=== PATIENT | male | born 1995 | race Hispanic/Latino ===

== ENCOUNTER 2021-09-19 14:44 | Emergency (ER) | payer SELFPAY ==
[2021-09-19] MEDS ORDERED: Morphine 4 MG/ML VIAL ONE ×3 (15:22→20:44)
[2021-09-19] MEDS ORDERED: Ondansetron PF 4 MG/2 ML Vial ONE ×2 (15:23→16:58)
[2021-09-19 15:35] LABS: #Lymphocytes 1.1 thou/uL (1.20-3.40); #Monocytes 0.7 thou/uL (0.11-0.59); #Neutrophils 9.9 thou/uL (1.40-6.50); %Basophils 0.1 % (0.0-1.0); %Lymphocytes 9.7 % (21.0-51.0); %Monocytes 6.1 % (0.0-10.0); %Neutrophils 84.1 % (42.0-75.0); Hemoglobin 16.2 g/dL (14.0-18.0); Mean Corpuscular HGB CONC 33.9 g/dL (32.0-36.0); Mean Corpuscular Hemoglobin 32.9 pg (27.0-31.0); Mean Corpuscular Volume 96.9 fL (78.0-98.0); Mean Platelet Volume 7.2 fL (7.4-10.4); Platelet Count 345 thou/uL (130-400); RBC Distribution Width 11.2 % (11.5-14.5); Red Blood Cell (RBC) Count 4.93 mill/uL (4.70-6.10); White Blood Cell (WBC) Count 11.7 thou/uL (4.8-10.8)
[2021-09-19 15:56] LABS: Bacteria/HPF None Seen HPF (None Seen); Bilirubin 1+ (Negative); Blood, Urine 3+ (Negative); Glucose, Urine (Dipstick) 70 mg/dL (Negative); Ketone, Urine 20 mg/dL (Negative); Leukocyte Negative Leu/uL (Negative); Nitrite Negative (Negative); Protein, Urine (Dipstick) 600 mg/dL (Neg-Trace); RBC/HPF Greater than 50 HPF (0-3); Specific Gravity, Urine 1.041 (1.002-1.036); Urobilinogen Normal mg/dL (Less than 2); pH, Urine 6.5 (5.0-9.0)
[2021-09-19 16:00] LABS: ALT (SGPT) 20 U/L (8-55); AST (SGOT) 20 U/L (5-34); Albumin 4.5 g/dL (3.5-5.0); Alkaline Phosphatase 118 U/L (40-110); Anion Gap 18 mmol/L (10-20); BUN (Urea Nitrogen) 15 mg/dL (8.9-20.6); Bilirubin, Total 0.9 mg/dL (0.2-1.2); Calc. Creatinine Clearance 0 mL/min (70-130); Carbon Dioxide 23 mmol/L (22-29); Chloride 98 mmol/L (98-107); Estimated GFR 64; Globulin 4.5 g/dL (2.4-3.5); Glucose 147 mg/dL (70-105); Lipase 7 U/L (8-78); Potassium 4.4 mmol/L (3.5-5.1); Sodium 135 mmol/L (136-145)
[2021-09-19 16:00] LABS: Clarity Cloudy (Clear)
[2021-09-19] MEDS ORDERED: Iopamidol-370 76% 500 ML 1 ML ONE (16:05)
== END 2021-09-19 21:03 | disposition short-term general hospital (02) ==
LOC: ERS 14:44
DX: R19.00 Intra-abdominal and pelvic swelling, mass and lump, unspecified site (principal); R31.9 Hematuria, unspecified
CPT/HCPCS: 74177; 76870; 80053; 81003; 81015; 83605; 83690; 85025; 87040; 93976; 96374; 96375; 96376; J2270; J2405; Q9967

== ENCOUNTER 2022-07-05 12:46 | Emergency (ER) | payer SELFPAY ==
[2022-07-05] MEDS ORDERED: Ondansetron PF 4 MG/2 ML Vial ONE (12:59)
[2022-07-05] MEDS ORDERED: Promethazine HCl 12.5 MG in Sodium Chloride 0.9% 50 ML IVPB SCH (13:15)
[2022-07-05 13:27] LABS: #Monocytes 0.3 thou/uL (0.11-0.59); #Neutrophils 3.1 thou/uL (1.40-6.50); %Basophils 0.5 % (0.0-1.0); %Eosinophils 0.2 % (0.0-10.0); %Lymphocytes 23.4 % (21.0-51.0); %Neutrophils 68.7 % (42.0-75.0); Mean Corpuscular HGB CONC 34.1 g/dL (32.0-36.0); Mean Corpuscular Hemoglobin 32.1 pg (27.0-31.0); Mean Corpuscular Volume 94.3 fl (78.0-98.0); Mean Platelet Volume 9.2 fL (7.4-10.4); Platelet Count 276 10x3/uL (130-400); RBC Distribution Width 13.1 % (11.5-14.5); Red Blood Cell (RBC) Count 4.36 mill/uL (4.70-6.10); White Blood Cell (WBC) Count 4.4 10x3/uL (4.8-10.8)
[2022-07-05 13:51] LABS: ALT (SGPT) 18 U/L (8-55); AST (SGOT) 17 U/L (5-34); Albumin 4.7 g/dL (3.5-5.0); Alkaline Phosphatase 100 U/L (40-110); Anion Gap 19 mmol/L (10-20); BUN (Urea Nitrogen) 15 mg/dL (8.9-20.6); Bilirubin, Total 2.5 mg/dL (0.2-1.2); Calc. Creatinine Clearance 0 mL/min (70-130); Calcium 9.5 mg/dL (7.8-10.44); Carbon Dioxide 15 mmol/L (22-29); Chloride 105 mmol/L (98-107); Estimated GFR 112; Globulin 2.8 g/dL (2.4-3.5); Glucose 100 mg/dL (70-105); Lipase 47 U/L (8-78); Potassium 3.5 mmol/L (3.5-5.1); Protein, Total 7.5 g/dL (6.0-8.3); Sodium 135 mmol/L (136-145)
== END 2022-07-05 14:37 | disposition home or self-care (01) ==
LOC: ERS 12:46
DX: R11.2 Nausea with vomiting, unspecified (principal); R19.7 Diarrhea, unspecified; F11.23 Opioid dependence with withdrawal; D72.819 Decreased white blood cell count, unspecified
CPT/HCPCS: 36415; 80053; 83690; 85025; 96365; 96375; J2405; J2550

== ENCOUNTER 2022-08-08 17:31 | Emergency (ER) | payer SELFPAY ==
[2022-08-08] MEDS ORDERED: Morphine 4 MG/ML VIAL ONE ×2 (18:00→20:22)
[2022-08-08] MEDS ORDERED: Ondansetron PF 4 MG/2 ML Vial ONE (18:00)
[2022-08-08 18:24] LABS: #Monocytes 0.4 thou/uL (0.11-0.59); #Neutrophils 7.1 thou/uL (1.40-6.50); %Basophils 0.2 % (0.0-1.0); %Eosinophils 0.3 % (0.0-10.0); %Lymphocytes 13.7 % (21.0-51.0); %Monocytes 4.9 % (0.0-10.0); %Neutrophils 80.7 % (42.0-75.0); Hemoglobin 15.6 g/dL (14.0-18.0); Mean Corpuscular HGB CONC 35.1 g/dL (32.0-36.0); Mean Corpuscular Hemoglobin 33.7 pg (27.0-31.0); Mean Corpuscular Volume 96.1 fl (78.0-98.0); Platelet Count 244 10x3/uL (130-400); RBC Distribution Width 12.6 % (11.5-14.5); Red Blood Cell (RBC) Count 4.63 mill/uL (4.70-6.10); White Blood Cell (WBC) Count 8.8 10x3/uL (4.8-10.8)
[2022-08-08 18:29] LABS: Bacteria/HPF None Seen HPF (None Seen); Bilirubin Negative (Negative); Blood, Urine Negative (Negative); CAUTI Indications for Culture Pelvic or flank pain; Clarity Clear (Clear); Glucose, Urine (Dipstick) Normal (Negative); Ketone, Urine 20 mg/dL (Negative); Leukocyte Negative Leu/uL (Negative); Nitrite Negative (Negative); Protein, Urine (Dipstick) 30 mg/dL (Neg-Trace); RBC/HPF 0-3 HPF (0-3); Specific Gravity, Urine 1.022 (1.002-1.036); Squamous Epithelial None Seen HPF (0-3); Urobilinogen Normal mg/dL (Less than 2); WBC/HPF 0-3 HPF (0-3); pH, Urine 7.5 (5.0-9.0)
[2022-08-08 18:31] LABS: Urine Culture Reflex No No
[2022-08-08 18:37] LABS: Amphetamine Not Detected (NotDetected); Barbiturates Screen Not Detected (NotDetected); Benzodiazepine Screen Not Detected (NotDetected); Cocaine Metabolite Screen Not Detected (NotDetected); Methadone Not Detected (NotDetected); Methamphetamine Not Detected (NotDetected); Opiate Screen Detected (NotDetected); Oxycodone Screen Not Detected (NotDetected); Phencyclidine (PCP) Not Detected (NotDetected); THC/Cannabinoid Screen Detected (NotDetected); Tricyclic Screen Not Detected (NotDetected)
[2022-08-08 18:48] LABS: INR-International Normal Ratio 1.1; Prothrombin Time 14.2 sec (12.0-14.7)
[2022-08-08 18:52] LABS: ALT (SGPT) 25 U/L (8-55); AST (SGOT) 24 U/L (5-34); Albumin 5.1 g/dL (3.5-5.0); Alkaline Phosphatase 117 U/L (40-110); Anion Gap 19 mmol/L (10-20); BUN (Urea Nitrogen) 14 mg/dL (8.9-20.6); Bilirubin, Total 1.3 mg/dL (0.2-1.2); Calc. Creatinine Clearance 0 mL/min (70-130); Calcium 10.4 mg/dL (7.8-10.44); Carbon Dioxide 14 mmol/L (22-29); Chloride 109 mmol/L (98-107); Estimated GFR 122; Glucose 119 mg/dL (70-105); Lipase 17 U/L (8-78); Magnesium 1.9 mg/dL (1.6-2.6); Potassium 3.7 mmol/L (3.5-5.1); Protein, Total 8.1 g/dL (6.0-8.3); Sodium 138 mmol/L (136-145)
[2022-08-08] MEDS ORDERED: Haloperidol Lactate 5 MG/ML VIAL ONE ×2 (19:31→21:30)
[2022-08-08 21:29] LABS: Lactic Acid 1.2 mmol/L (0.5-2.2)
== END 2022-08-08 22:32 | disposition home or self-care (01) ==
LOC: ERS 17:31
DX: R11.2 Nausea with vomiting, unspecified (principal); E86.0 Dehydration
CPT/HCPCS: 36415; 71045; 74177; 80053; 80306; 81001; 83605; 83690; 83735; 84484; 85025; 85610; 85730; 93005; 96361; 96374; 96375; 96376; J1630; J2270; J2405

== ENCOUNTER 2022-10-03 23:44 | Inpatient (IN) | payer OTHER, SELFPAY ==
[~2022-10-03 23:44] MED LIST: Iopamidol-370 76% 500 ML MDV (1 ML CHARGE) ONE
[2022-10-04 00:29] LABS: #Monocytes 0.2 thou/uL (0.11-0.59); #Neutrophils 7.1 thou/uL (1.40-6.50); %Basophils 0.1 % (0.0-1.0); %Lymphocytes 7.8 % (21.0-51.0); %Monocytes 2.1 % (0.0-10.0); %Neutrophils 89.9 % (42.0-75.0); Hematocrit 40.3 % (42.0-52.0); Hemoglobin 14.9 g/dL (14.0-18.0); Mean Corpuscular Hemoglobin 33.3 pg (27.0-31.0); Mean Corpuscular Volume 90.2 fl (78.0-98.0); Mean Platelet Volume 9.7 fL (7.4-10.4); Platelet Count 236 10x3/uL (130-400); RBC Distribution Width 12.2 % (11.5-14.5); Red Blood Cell (RBC) Count 4.47 mill/uL (4.70-6.10); White Blood Cell (WBC) Count 7.9 10x3/uL (4.8-10.8)
[2022-10-04] MEDS ORDERED: Ondansetron PF 4 MG/2 ML Vial ONE (00:46)
[2022-10-04] MEDS ORDERED: Morphine 4 MG/ML VIAL ONE ×2 (00:46→02:29)
[2022-10-04 00:58] LABS: ALT (SGPT) 24 U/L (8-55); AST (SGOT) 20 U/L (5-34); Albumin 5.1 g/dL (3.5-5.0); Alkaline Phosphatase 114 U/L (40-110); Anion Gap 18 mmol/L (10-20); BUN (Urea Nitrogen) 17 mg/dL (8.9-20.6); Calc. Creatinine Clearance 0 mL/min (70-130); Calcium 10.4 mg/dL (7.8-10.44); Carbon Dioxide 16 mmol/L (22-29); Chloride 106 mmol/L (98-107); Estimated GFR 123; Globulin 3.2 g/dL (2.4-3.5); Glucose 111 mg/dL (70-105); Lipase 8 U/L (8-78); Magnesium 1.9 mg/dL (1.6-2.6); Potassium 3.2 mmol/L (3.5-5.1); Protein, Total 8.3 g/dL (6.0-8.3); Sodium 137 mmol/L (136-145)
[2022-10-04] MEDS ORDERED: Potassium Chloride 20 MEQ TAB ONE (02:29)
[2022-10-04] MEDS ORDERED: Promethazine HCl 25 MG/ML VIAL ONE (03:45)
[2022-10-04 06:32] VITALS: BMI 23.9
[2022-10-04] MEDS ORDERED: Promethazine HCl 12.5 MG in Sodium Chloride 0.9% 50 ML IVPB PRN (08:13)
[2022-10-04] MEDS: Morphine 4 MG/ML VIAL SLOW IVP PRN ×4 (09:09→21:07)
[2022-10-04] MEDS: Ondansetron PF 4 MG/2 ML Vial IVP PRN (09:14)
[2022-10-04] MEDS ORDERED: Acetaminophen 325 MG TAB PO PRN (10:15)
[2022-10-04] MEDS ORDERED: Pantoprazole 40 MG VIAL IVP SCH ×2 (10:19→10:45)
[2022-10-04] MEDS ORDERED: Electrolyte Replacement Protocol 1 EACH FS SCH (10:30)
[2022-10-04] MEDS: Potassium Chloride 20 MEQ in Lactated Ringer's 1,000 ML IV SCH ×2 (12:35→23:31)
[2022-10-04] MEDS ORDERED: Magnesium 2 GM/50 ML(in water) 2 GM in Premix Bag 1 BAG IVPB SCH (12:45)
[2022-10-04] MEDS: Metoclopramide HCl 10 MG/2 ML VIAL IVP PRN ×2 (13:55→21:23)
[2022-10-04] MEDS: Pantoprazole 40 MG VIAL IVP SCH (21:08)
[2022-10-05] MEDS: Morphine 4 MG/ML VIAL SLOW IVP PRN ×5 (01:12→20:33)
[2022-10-05] MEDS: Ondansetron PF 4 MG/2 ML Vial IVP PRN ×3 (02:47→20:33)
[2022-10-05 05:54] LABS: #Monocytes 0.3 thou/uL (0.11-0.59); #Neutrophils 1.9 thou/uL (1.40-6.50); %Basophils 0.5 % (0.0-1.0); %Eosinophils 0.9 % (0.0-10.0); %Lymphocytes 47.3 % (21.0-51.0); %Monocytes 6.8 % (0.0-10.0); %Neutrophils 44.5 % (42.0-75.0); Hematocrit 35.9 % (42.0-52.0); Hemoglobin 12.4 g/dL (14.0-18.0); Mean Corpuscular HGB CONC 34.5 g/dL (32.0-36.0); Mean Corpuscular Volume 95.5 fl (78.0-98.0); Mean Platelet Volume 9.7 fL (7.4-10.4); Platelet Count 169 10x3/uL (130-400); RBC Distribution Width 12.4 % (11.5-14.5); Red Blood Cell (RBC) Count 3.76 mill/uL (4.70-6.10); White Blood Cell (WBC) Count 4.3 10x3/uL (4.8-10.8)
[2022-10-05 06:29] LABS: Anion Gap 12 mmol/L (10-20); BUN (Urea Nitrogen) 10 mg/dL (8.9-20.6); Calc. Creatinine Clearance 141 mL/min (70-130); Calcium 9.2 mg/dL (7.8-10.44); Carbon Dioxide 22 mmol/L (22-29); Chloride 107 mmol/L (98-107); Estimated GFR 122; Glucose 75 mg/dL (70-105); Potassium 3.6 mmol/L (3.5-5.1); Sodium 137 mmol/L (136-145)
[2022-10-05] MEDS: Metoclopramide HCl 10 MG/2 ML VIAL IVP PRN ×2 (06:49→14:35)
[2022-10-05] MEDS ORDERED: Fentanyl 100 MCG/2 ML VIAL SLOW IVP PRN (07:40)
[2022-10-05] MEDS ORDERED: fentaNYL 50 mcg/mL 1 mL Vial SLOW IVP PRN (07:42)
[2022-10-05] MEDS: Pantoprazole 40 MG VIAL IVP SCH ×2 (08:43→20:32)
[2022-10-05] MEDS: Potassium Chloride 20 MEQ in Lactated Ringer's 1,000 ML IV SCH ×2 (09:16→16:28)
[2022-10-05] MEDS ORDERED: Promethazine HCl 25 MG/ML VIAL IM PRN (09:19)
[2022-10-05] MEDS ORDERED: Ondansetron HCl/PF 4 MG/2 ML Vial IVP PRN (09:19)
[2022-10-05] MEDS ORDERED: Lidocaine 1% PF 5 ML VIAL ONE (09:22)
[2022-10-05] MEDS ORDERED: PROPOFOL 200 MG/20 ML VIAL ONE (09:22)
[2022-10-05] MEDS: Scopolamine 1.5 mg/72 hour Patch TD SCH (12:43)
[2022-10-05] MEDS ORDERED: Fentanyl 100 MCG/2 ML VIAL SLOW IVP SCH (16:07)
[2022-10-05] MEDS: Metoclopramide HCl 10 MG/2 ML VIAL IVP SCH ×2 (16:29→20:32)
[2022-10-06] MEDS ORDERED: fentaNYL 50 mcg/mL 1 mL Vial SLOW IVP SCH (00:15)
[2022-10-06] MEDS: Morphine 4 MG/ML VIAL SLOW IVP PRN ×3 (02:21→10:53)
[2022-10-06] MEDS: Ondansetron PF 4 MG/2 ML Vial IVP PRN (02:26)
[2022-10-06] MEDS: Potassium Chloride 20 MEQ in Lactated Ringer's 1,000 ML IV SCH ×2 (02:57→15:23)
[2022-10-06 04:57] LABS: #Monocytes 0.4 thou/uL (0.11-0.59); #Neutrophils 3.9 thou/uL (1.40-6.50); %Basophils 0.3 % (0.0-1.0); %Eosinophils 0.2 % (0.0-10.0); %Lymphocytes 25.2 % (21.0-51.0); %Monocytes 6.1 % (0.0-10.0); Hematocrit 36.9 % (42.0-52.0); Hemoglobin 12.8 g/dL (14.0-18.0); Mean Corpuscular HGB CONC 34.7 g/dL (32.0-36.0); Mean Corpuscular Hemoglobin 32.7 pg (27.0-31.0); Mean Corpuscular Volume 94.4 fl (78.0-98.0); Mean Platelet Volume 9.6 fL (7.4-10.4); Platelet Count 170 10x3/uL (130-400); RBC Distribution Width 12.4 % (11.5-14.5); Red Blood Cell (RBC) Count 3.91 mill/uL (4.70-6.10); White Blood Cell (WBC) Count 5.8 10x3/uL (4.8-10.8)
[2022-10-06 05:18] LABS: Anion Gap 17 mmol/L (10-20); BUN (Urea Nitrogen) 7 mg/dL (8.9-20.6); Calc. Creatinine Clearance 132 mL/min (70-130); Calcium 9.6 mg/dL (7.8-10.44); Carbon Dioxide 23 mmol/L (22-29); Chloride 103 mmol/L (98-107); Estimated GFR 115; Glucose 80 mg/dL (70-105); Potassium 4.1 mmol/L (3.5-5.1); Sodium 139 mmol/L (136-145)
[2022-10-06] MEDS: Metoclopramide HCl 10 MG/2 ML VIAL IVP SCH ×4 (06:30→21:18)
[2022-10-06] MEDS ORDERED: Ondansetron ODT 4 MG TAB PO PRN (07:58)
[2022-10-06] MEDS: Scopolamine 1.5 mg/72 hour Patch TD SCH (08:15)
[2022-10-06] MEDS: Pantoprazole 40 MG VIAL IVP SCH ×2 (08:49→21:18)
[2022-10-06] MEDS: Morphine ER 30 MG TAB PO SCH ×2 (08:49→21:26)
[2022-10-06] MEDS: Dicyclomine 20 MG TAB PO SCH (08:49)
[2022-10-06] MEDS: DULoxetine 30 MG CAP PO SCH ×2 (08:50→21:19)
[2022-10-06] MEDS: Gabapentin 300 MG CAP PO SCH ×2 (08:50→21:18)
[2022-10-06] MEDS ORDERED: Apixaban 5 MG TAB PO SCH (09:00)
[2022-10-06] MEDS: Morphine IR Tab 15 MG TAB PO PRN (15:22)
[2022-10-06] MEDS ORDERED: traZODone HCl 50 MG TAB PO SCH (21:00)
[2022-10-06] MEDS: Apixaban 5 MG TAB PO SCH (21:19)
[2022-10-07] MEDS: Morphine IR Tab 15 MG TAB PO PRN (02:52)
[2022-10-07] MEDS: Potassium Chloride 20 MEQ in Lactated Ringer's 1,000 ML IV SCH ×2 (04:46→10:41)
[2022-10-07 09:15] VITALS: BP 100/66; TEMP 98
[2022-10-07] MEDS: Morphine ER 30 MG TAB PO SCH (10:02)
[2022-10-07] MEDS: DULoxetine 30 MG CAP PO SCH (10:04)
[2022-10-07] MEDS: Metoclopramide HCl 10 MG/2 ML VIAL IVP SCH (10:04)
[2022-10-07] MEDS: Apixaban 5 MG TAB PO SCH (10:04)
[2022-10-07] MEDS: Gabapentin 300 MG CAP PO SCH (10:04)
[2022-10-07] MEDS: Pantoprazole 40 MG VIAL IVP SCH (10:05)
[2022-10-07] MEDS: Dicyclomine 20 MG TAB PO SCH (10:05)
[2022-10-07] MEDS: Scopolamine 1.5 mg/72 hour Patch TD SCH (10:13)
== END 2022-10-07 11:45 | disposition home or self-care (01) | DRG 393 ==
LOC: ERS 23:44 → SJJU 10-04 04:32 → OBSVTOIN 10-06 09:28
PROVIDERS: ADMIT Student in an Organized Health Care Education/Training Program; ATTEND Family Medicine
PROC: 0DB68ZX Excision of Stomach, Via Natural or Artificial Opening Endoscopic, Diagnostic (ICD-10-PCS; principal; 2022-10-05)
DX: R11.15 Cyclical vomiting syndrome unrelated to migraine (principal); I82.220 Acute embolism and thrombosis of inferior vena cava; R10.33 Periumbilical pain; R19.7 Diarrhea, unspecified; E87.6 Hypokalemia; Z88.0 Allergy status to penicillin; Z90.79 Acquired absence of other genital organ(s); Z79.899 Other long term (current) drug therapy; F12.20 Cannabis dependence, uncomplicated
CPT/HCPCS: 36415; 74177; 80048; 80053; 82105; 83605; 83690; 83735; 85025; 86850; 86900; 86901; 87040; 88305; 96361; 96365; 96372; 96375; 96376; C9113; G0378; J1650; J2270; J2405; J2550; J2704; J2765; J3010; J3475; J3480; J7120; Q9967

== ENCOUNTER 2022-10-28 22:08 | Emergency (ER) | payer OTHER, SELFPAY ==
[2022-10-28] MEDS ORDERED: Ondansetron PF 4 MG/2 ML Vial ONE (22:30)
[2022-10-28] MEDS ORDERED: diphenhydrAMINE 50 MG/ML VIAL ONE (22:30)
[2022-10-28] MEDS ORDERED: Haloperidol Lactate 5 MG/ML VIAL ONE ×2 (22:30)
[2022-10-28] MEDS ORDERED: Morphine 4 MG/ML VIAL ONE (22:30)
[2022-10-28 22:38] LABS: #Monocytes 0.4 thou/uL (0.11-0.59); #Neutrophils 8.9 thou/uL (1.40-6.50); %Basophils 0.2 % (0.0-1.0); %Lymphocytes 8.1 % (21.0-51.0); %Monocytes 3.5 % (0.0-10.0); %Neutrophils 87.8 % (42.0-75.0); Hematocrit 39.7 % (42.0-52.0); Hemoglobin 13.8 g/dL (14.0-18.0); Mean Corpuscular HGB CONC 34.8 g/dL (32.0-36.0); Mean Corpuscular Hemoglobin 32.9 pg (27.0-31.0); Mean Corpuscular Volume 94.7 fl (78.0-98.0); Mean Platelet Volume 9.5 fL (7.4-10.4); Platelet Count 244 10x3/uL (130-400); RBC Distribution Width 13.3 % (11.5-14.5); Red Blood Cell (RBC) Count 4.19 mill/uL (4.70-6.10); White Blood Cell (WBC) Count 10.2 10x3/uL (4.8-10.8)
[2022-10-28 23:05] LABS: ALT (SGPT) 50 U/L (8-55); AST (SGOT) 29 U/L (5-34); Albumin 4.8 g/dL (3.5-5.0); Alkaline Phosphatase 104 U/L (40-110); Anion Gap 17 mmol/L (10-20); BUN (Urea Nitrogen) 14 mg/dL (8.9-20.6); Calc. Creatinine Clearance 0 mL/min (70-130); Calcium 9.6 mg/dL (7.8-10.44); Carbon Dioxide 19 mmol/L (22-29); Chloride 105 mmol/L (98-107); Estimated GFR 125; Globulin 2.6 g/dL (2.4-3.5); Glucose 124 mg/dL (70-105); Lipase 17 U/L (8-78); Potassium 3.4 mmol/L (3.5-5.1); Protein, Total 7.4 g/dL (6.0-8.3); Sodium 138 mmol/L (136-145)
== END 2022-10-28 23:46 | disposition home or self-care (01) ==
LOC: ERS 22:08
DX: F12.288 Cannabis dependence with other cannabis-induced disorder (principal)
CPT/HCPCS: 36415; 80053; 83690; 85025; 96361; 96374; 96375; J1200; J1630; J2270; J2405

== ENCOUNTER 2022-11-28 14:24 | Emergency (ER) | payer OTHER, SELFPAY ==
[2022-11-28 14:53] LABS: #Monocytes 0.4 thou/uL (0.11-0.59); #Neutrophils 7.3 thou/uL (1.40-6.50); %Basophils 0.2 % (0.0-1.0); %Eosinophils 0.2 % (0.0-10.0); %Lymphocytes 14.2 % (21.0-51.0); %Monocytes 4.6 % (0.0-10.0); %Neutrophils 80.5 % (42.0-75.0); Hematocrit 44.3 % (42.0-52.0); Hemoglobin 14.9 g/dL (14.0-18.0); Mean Corpuscular HGB CONC 33.6 g/dL (32.0-36.0); Mean Corpuscular Hemoglobin 32.7 pg (27.0-31.0); Mean Corpuscular Volume 97.4 fl (78.0-98.0); Mean Platelet Volume 9.4 fL (7.4-10.4); Platelet Count 193 10x3/uL (130-400); RBC Distribution Width 13.1 % (11.5-14.5); Red Blood Cell (RBC) Count 4.55 mill/uL (4.70-6.10); White Blood Cell (WBC) Count 9.1 10x3/uL (4.8-10.8)
[2022-11-28] MEDS ORDERED: Ondansetron PF 4 MG/2 ML Vial ONE ×2 (15:06→17:26)
[2022-11-28] MEDS ORDERED: Morphine 4 MG/ML VIAL ONE (15:06)
[2022-11-28 15:19] LABS: INR-International Normal Ratio 1.1; Prothrombin Time 14.3 sec (12.0-14.7)
[2022-11-28 15:21] LABS: ALT (SGPT) 27 U/L (8-55); AST (SGOT) 22 U/L (5-34); Albumin 5.1 g/dL (3.5-5.0); Alkaline Phosphatase 115 U/L (40-110); Anion Gap 14 mmol/L (10-20); BUN (Urea Nitrogen) 12 mg/dL (8.9-20.6); Bilirubin, Total 0.7 mg/dL (0.2-1.2); Calc. Creatinine Clearance 0 mL/min (70-130); Carbon Dioxide 25 mmol/L (22-29); Chloride 105 mmol/L (98-107); Estimated GFR 110; Globulin 3.1 g/dL (2.4-3.5); Glucose 127 mg/dL (70-105); Potassium 3.5 mmol/L (3.5-5.1); Protein, Total 8.2 g/dL (6.0-8.3); Sodium 140 mmol/L (136-145)
[2022-11-28] MEDS ORDERED: Haloperidol Lactate 5 MG/ML VIAL ONE ×2 (15:37→17:26)
[2022-11-28] MEDS ORDERED: Ketorolac Tromethamine 30 MG/ML VIAL ONE (15:37)
[2022-11-28 18:04] LABS: Lactic Acid 1.5 mmol/L (0.5-2.2)
[2022-11-28 18:10] LABS: Bacteria/HPF None Seen HPF (None Seen); Bilirubin Negative (Negative); Blood, Urine Negative (Negative); CAUTI Indications for Culture Dysuria,urgency,freq; Clarity Clear (Clear); Glucose, Urine (Dipstick) Normal (Negative); Ketone, Urine Negative (Negative); Leukocyte Negative Leu/uL (Negative); Nitrite Negative (Negative); Protein, Urine (Dipstick) 20 mg/dL (Neg-Trace); RBC/HPF 0-3 HPF (0-3); Specific Gravity, Urine 1.043 (1.002-1.036); Squamous Epithelial 0-3 HPF (0-3); Urobilinogen Normal mg/dL (Less than 2); WBC/HPF 0-3 HPF (0-3); pH, Urine 8.5 (5.0-9.0)
[2022-11-28 18:13] LABS: Urine Culture Reflex No No
== END 2022-11-28 18:41 | disposition home or self-care (01) ==
LOC: ERS 14:24
DX: F12.188 Cannabis abuse with other cannabis-induced disorder (principal); Z85.47 Personal history of malignant neoplasm of testis
CPT/HCPCS: 36415; 36416; 74177; 80053; 81001; 83605; 83690; 85025; 85610; 85730; 87040; 87086; 93005; 94760; 96361; 96374; 96375; 96376; J1630; J1885; J2270; J2405; Q9967

== ENCOUNTER 2022-11-30 11:17 | Emergency (ER) | payer OTHER, SELFPAY ==
[2022-11-30] MEDS ORDERED: LORazepam 2 MG/ML SYR.(CARPUJECT) ONE (12:29)
[2022-11-30 12:30] LABS: #Monocytes 0.6 thou/uL (0.11-0.59); #Neutrophils 7.5 thou/uL (1.40-6.50); %Basophils 0.2 % (0.0-1.0); %Lymphocytes 13.3 % (21.0-51.0); %Monocytes 6.4 % (0.0-10.0); %Neutrophils 79.8 % (42.0-75.0); Hematocrit 43.4 % (42.0-52.0); Hemoglobin 14.8 g/dL (14.0-18.0); Mean Corpuscular HGB CONC 34.1 g/dL (32.0-36.0); Mean Corpuscular Hemoglobin 32.2 pg (27.0-31.0); Mean Corpuscular Volume 94.6 fl (78.0-98.0); Mean Platelet Volume 10.1 fL (7.4-10.4); Platelet Count 248 10x3/uL (130-400); RBC Distribution Width 13.2 % (11.5-14.5); Red Blood Cell (RBC) Count 4.59 mill/uL (4.70-6.10); White Blood Cell (WBC) Count 9.4 10x3/uL (4.8-10.8)
[2022-11-30] MEDS ORDERED: Haloperidol Lactate 5 MG/ML VIAL ONE (12:30)
[2022-11-30] MEDS ORDERED: diphenhydrAMINE 50 MG/ML VIAL ONE (12:30)
[2022-11-30] MEDS ORDERED: Metoclopramide HCl 10 MG/2 ML VIAL ONE (12:30)
[2022-11-30 12:55] LABS: ALT (SGPT) 24 U/L (8-55); AST (SGOT) 23 U/L (5-34); Albumin 5.6 g/dL (3.5-5.0); Alkaline Phosphatase 107 U/L (40-110); Anion Gap 27 mmol/L (10-20); BUN (Urea Nitrogen) 16 mg/dL (8.9-20.6); Bilirubin, Total 1.7 mg/dL (0.2-1.2); CK (CPK) 537 U/L (30-200); Calc. Creatinine Clearance 0 mL/min (70-130); Calcium 10.9 mg/dL (7.8-10.44); Carbon Dioxide 14 mmol/L (22-29); Chloride 101 mmol/L (98-107); Estimated GFR 84; Globulin 3.5 g/dL (2.4-3.5); Glucose 115 mg/dL (70-105); Lipase 11 U/L (8-78); Protein, Total 9.1 g/dL (6.0-8.3); Sodium 138 mmol/L (136-145)
[2022-11-30 14:26] LABS: Bacteria/HPF None Seen HPF (None Seen); Bilirubin Negative (Negative); Blood, Urine 1+ (Negative); CAUTI Indications for Culture Pelvic or flank pain; Clarity Clear (Clear); Glucose, Urine (Dipstick) Normal (Negative); Ketone, Urine 100 mg/dL (Negative); Leukocyte Negative Leu/uL (Negative); Mucous/LPF Rare LPF (<2+); Nitrite Negative (Negative); Protein, Urine (Dipstick) 200 mg/dL (Neg-Trace); RBC/HPF 0-3 HPF (0-3); Specific Gravity, Urine 1.033 (1.002-1.036); Squamous Epithelial 0-3 HPF (0-3); WBC/HPF 0-3 HPF (0-3)
[2022-11-30 14:27] LABS: Urine Culture Reflex No No
== END 2022-11-30 15:44 | disposition home or self-care (01) ==
LOC: ERS 11:17
DX: R11.10 Vomiting, unspecified (principal); E86.0 Dehydration; E87.6 Hypokalemia
CPT/HCPCS: 80053; 81001; 82550; 83690; 85025; 93005; 96361; 96374; 96375; J1200; J1630; J2060; J2765

== ENCOUNTER 2023-05-17 16:27 | Emergency (ER) | payer BC, MEDICAID ==
[2023-05-17] MEDS ORDERED: Morphine 4 MG/ML VIAL ONE ×2 (16:40→19:54)
[2023-05-17] MEDS ORDERED: Ondansetron PF 4 MG/2 ML Vial ONE (16:41)
[2023-05-17 17:05] LABS: #Basophils Less than 0.03 10x3/uL (0.0-0.2); #Eosinphils Less than 0.03 10x3/uL (0.0-0.7); %Basophils 0.3 % (0.0-1.0); %Eosinophils 0.1 % (0.0-10.0); %Lymphocytes 13.2 % (21.0-51.0); %Monocytes 3.5 % (0.0-10.0); %Neutrophils 82.6 % (42.0-75.0); Hematocrit 47.4 % (42.0-52.0); Hemoglobin 16.5 g/dL (14.0-18.0); Mean Corpuscular HGB CONC 34.8 g/dL (32.0-36.0); Mean Corpuscular Hemoglobin 33.1 pg (27.0-31.0); Mean Corpuscular Volume 95.2 fL (78.0-98.0); Mean Platelet Volume 9.7 fL (7.4-10.4); Platelet Count 216 10x3/uL (130-400); RBC Distribution Width 12.8 % (11.5-14.5); Red Blood Cell (RBC) Count 4.98 mill/uL (4.70-6.10)
[2023-05-17 17:20] LABS: ALT (SGPT) 24 U/L (8-55); AST (SGOT) 23 U/L (5-34); Acetaminophen Less than 10 mcg/mL (10.0-30.0); Albumin 5.3 g/dL (3.5-5.0); Alcohol Less than 10.0 mg/dL (Less than 10); Alkaline Phosphatase 115 U/L (40-110); Anion Gap 19 mmol/L (10-20); BUN (Urea Nitrogen) 20 mg/dL (8.9-20.6); Bilirubin, Total 1.2 mg/dL (0.2-1.2); Calc. Creatinine Clearance 0 mL/min (70-130); Calcium 10.4 mg/dL (7.8-10.44); Carbon Dioxide 20 mmol/L (22-29); Chloride 102 mmol/L (98-107); Estimated GFR 78; Globulin 3.1 g/dL (2.4-3.5); Glucose 124 mg/dL (70-105); Magnesium 2.2 mg/dL (1.6-2.6); Potassium 4.1 mmol/L (3.5-5.1); Protein, Total 8.4 g/dL (6.0-8.3); Salicylate Less than 8.0 mg/dL (15.0-30.0); Sodium 137 mmol/L (136-145)
[2023-05-17 18:25] LABS: Bacteria/HPF None Seen HPF (None Seen); Bilirubin Negative (Negative); Blood, Urine Negative (Negative); CAUTI Indications for Culture Pelvic or flank pain; Clarity Clear (Clear); Glucose, Urine (Dipstick) Normal (Negative); Ketone, Urine Negative (Negative); Leukocyte Negative Leu/uL (Negative); Nitrite Negative (Negative); Protein, Urine (Dipstick) Negative (Neg-Trace); RBC/HPF None Seen HPF (0-3); Specific Gravity, Urine 1.011 (1.002-1.036); Squamous Epithelial 0-3 HPF (0-3); Urobilinogen Normal mg/dL (Less than 2); WBC/HPF None Seen HPF (0-3); pH, Urine 5.5 (5.0-9.0)
[2023-05-17 18:28] LABS: Urine Culture Reflex No No
[2023-05-17 18:31] LABS: Amphetamine Not Detected (NotDetected); Barbiturates Screen Not Detected (NotDetected); Benzodiazepine Screen Detected (NotDetected); Cocaine Metabolite Screen Not Detected (NotDetected); Methadone Not Detected (NotDetected); Methamphetamine Not Detected (NotDetected); Opiate Screen Detected (NotDetected); Oxycodone Screen Not Detected (NotDetected); Phencyclidine (PCP) Not Detected (NotDetected); THC/Cannabinoid Screen Not Detected (NotDetected); Tricyclic Screen Detected (NotDetected)
[2023-05-17] MEDS ORDERED: Dicyclomine 20 MG TAB ONE (19:54)
== END 2023-05-17 20:20 | disposition home or self-care (01) ==
LOC: ERS 16:27
DX: K29.70 Gastritis, unspecified, without bleeding (principal)
CPT/HCPCS: 36415; 74177; 80053; 80306; 80307; 81001; 83605; 83735; 85025; 96374; 96375; 96376; J2270; J2405; Q9967

== ENCOUNTER 2023-07-13 15:01 | Observation (INO) | payer BC, OTHER ==
[2023-07-13 17:20] LABS: #Basophils Less than 0.03 10x3/uL (0.0-0.2); #Eosinphils Less than 0.03 10x3/uL (0.0-0.7); %Basophils 0.3 % (0.0-1.0); %Eosinophils 0.1 % (0.0-10.0); %Lymphocytes 20.5 % (21.0-51.0); %Monocytes 3.5 % (0.0-10.0); %Neutrophils 75.1 % (42.0-75.0); Hematocrit 45.3 % (42.0-52.0); Hemoglobin 15.9 g/dL (14.0-18.0); Mean Corpuscular HGB CONC 35.1 g/dL (32.0-36.0); Mean Corpuscular Hemoglobin 32.5 pg (27.0-31.0); Mean Corpuscular Volume 92.6 fL (78.0-98.0); Mean Platelet Volume 9.3 fL (7.4-10.4); Platelet Count 215 10x3/uL (130-400); RBC Distribution Width 12.5 % (11.5-14.5); Red Blood Cell (RBC) Count 4.89 mill/uL (4.70-6.10)
[2023-07-13 17:40] LABS: ALT (SGPT) 28 U/L (8-55); AST (SGOT) 20 U/L (5-34); Albumin 4.8 g/dL (3.5-5.0); Alkaline Phosphatase 118 U/L (40-110); Anion Gap 13 mmol/L (10-20); BUN (Urea Nitrogen) 10 mg/dL (8.9-20.6); Bilirubin, Total 1.3 mg/dL (0.2-1.2); Calc. Creatinine Clearance 0 mL/min (70-130); Carbon Dioxide 25 mmol/L (22-29); Chloride 107 mmol/L (98-107); Estimated GFR 109; Globulin 2.9 g/dL (2.4-3.5); Glucose 111 mg/dL (70-105); Lipase 15 U/L (8-78); Protein, Total 7.7 g/dL (6.0-8.3); Sodium 141 mmol/L (136-145)
[2023-07-13] MEDS ORDERED: Morphine 4 MG/ML VIAL ONE (18:05)
[2023-07-13] MEDS ORDERED: Ondansetron PF 4 MG/2 ML Vial ONE (18:05)
[2023-07-13] MEDS ORDERED: Metoclopramide HCl 10 MG (2 mL) VIAL ONE (18:49)
[2023-07-13] MEDS ORDERED: HYDROmorphone 0.5 MG/0.5 ML SYRINGE ONE ×2 (18:49→21:06)
[2023-07-13 19:35] LABS: Bacteria/HPF None Seen HPF (None Seen); Bilirubin Negative (Negative); Blood, Urine Negative (Negative); CAUTI Indications for Culture Acute Hematuria; Clarity Clear (Clear); Glucose, Urine (Dipstick) Normal (Negative); Ketone, Urine Negative (Negative); Leukocyte Negative Leu/uL (Negative); Nitrite Negative (Negative); Protein, Urine (Dipstick) Negative (Neg-Trace); RBC/HPF None Seen HPF (0-3); Specific Gravity, Urine 1.007 (1.002-1.036); Squamous Epithelial 0-3 HPF (0-3); Urobilinogen Normal mg/dL (Less than 2); WBC/HPF 0-3 HPF (0-3); pH, Urine 6.5 (5.0-9.0)
[2023-07-13 19:36] LABS: Urine Culture Reflex No No
[2023-07-13] MEDS ORDERED: Diazepam 10 MG/2 ML SYRINGE ONE (20:34)
[2023-07-13] MEDS ORDERED: Ketorolac Tromethamine 30 MG (1 mL) VIAL ONE (20:34)
[2023-07-13] MEDS ORDERED: Pantoprazole 40 MG VIAL ONE (21:17)
[2023-07-13 22:41] LABS: Magnesium 2.1 mg/dL (1.6-2.6); Phosphorus 2.2 mg/dL (2.3-4.7)
[2023-07-13] MEDS ORDERED: Acetaminophen 325 MG TAB PO PRN (23:25)
[2023-07-13] MEDS ORDERED: Ondansetron ODT 4 MG TAB PO PRN (23:25)
[2023-07-13 23:47] LABS: Amphetamine Not Detected (NotDetected); Barbiturates Screen Not Detected (NotDetected); Benzodiazepine Screen Detected (NotDetected); Cocaine Metabolite Screen Not Detected (NotDetected); Methadone Not Detected (NotDetected); Methamphetamine Not Detected (NotDetected); Opiate Screen Not Detected (NotDetected); Oxycodone Screen Not Detected (NotDetected); Phencyclidine (PCP) Not Detected (NotDetected); THC/Cannabinoid Screen Not Detected (NotDetected); Tricyclic Screen Detected (NotDetected)
[2023-07-14] MEDS: Morphine 2 MG/ML VIAL SLOW IVP PRN (02:30)
[2023-07-14] MEDS: Ondansetron PF 4 MG/2 ML Vial IVP PRN (02:48)
[2023-07-14] MEDS: Sodium Chloride 0.9% 1,000 ML IV SCH (02:55)
[2023-07-14] MEDS: HYDROmorphone 0.5 MG/0.5 ML SYRINGE SLOW IVP SCH (03:38)
[2023-07-14 04:23] VITALS: BMI 26.2
[2023-07-14] MEDS: Promethazine HCl 12.5 MG in Sodium Chloride 0.9% 50 ML IVPB SCH ×2 (05:20→05:21)
[2023-07-14] MEDS: Enoxaparin 80 MG (0.8 mL) SYRINGE SC SCH ×2 (05:23→08:55)
[2023-07-14 06:16] LABS: #Basophils Less than 0.03 10x3/uL (0.0-0.2); #Eosinphils Less than 0.03 10x3/uL (0.0-0.7); %Basophils 0.2 % (0.0-1.0); %Lymphocytes 24.9 % (21.0-51.0); %Monocytes 4.5 % (0.0-10.0); %Neutrophils 70.2 % (42.0-75.0); Hematocrit 37.9 % (42.0-52.0); Mean Corpuscular HGB CONC 34.3 g/dL (32.0-36.0); Mean Corpuscular Hemoglobin 32.7 pg (27.0-31.0); Mean Corpuscular Volume 95.2 fL (78.0-98.0); Mean Platelet Volume 9.6 fL (7.4-10.4); Platelet Count 171 10x3/uL (130-400); RBC Distribution Width 12.5 % (11.5-14.5); Red Blood Cell (RBC) Count 3.98 mill/uL (4.70-6.10)
[2023-07-14 07:04] LABS: Anion Gap 13 mmol/L (10-20); BUN (Urea Nitrogen) 10 mg/dL (8.9-20.6); Calc. Creatinine Clearance 139 mL/min (70-130); Calcium 8.6 mg/dL (7.8-10.44); Carbon Dioxide 20 mmol/L (22-29); Chloride 110 mmol/L (98-107); Estimated GFR 110; Glucose 101 mg/dL (70-105); Potassium 3.4 mmol/L (3.5-5.1); Sodium 140 mmol/L (136-145)
[2023-07-14] MEDS: Pantoprazole 40 MG VIAL IVP SCH (08:55)
[2023-07-14] MEDS: Promethazine HCl 12.5 MG in Sodium Chloride 0.9% 50 ML IVPB PRN (09:13)
[2023-07-14 12:12] VITALS: BP 114/67; TEMP 98.9
== END 2023-07-14 16:50 | disposition home or self-care (01) ==
LOC: ERS 15:01 → MSONC 23:25
PROVIDERS: ADMIT Physician Assistant; ATTEND Physician Assistant
DX: K52.9 Noninfective gastroenteritis and colitis, unspecified (principal); C62.90 Malignant neoplasm of unspecified testis, unspecified whether descended or undescended; G62.9 Polyneuropathy, unspecified; F12.90 Cannabis use, unspecified, uncomplicated; E83.39 Other disorders of phosphorus metabolism; I82.220 Acute embolism and thrombosis of inferior vena cava; Z90.79 Acquired absence of other genital organ(s); Z79.01 Long term (current) use of anticoagulants; Z88.0 Allergy status to penicillin; Z79.899 Other long term (current) drug therapy
CPT/HCPCS: 36415; 36416; 74177; 76870; 80048; 80053; 80306; 81001; 83690; 83735; 84100; 85025; 93976; 96365; 96366; 96368; 96372; 96375; 96376; C9113; G0378; J1170; J1650; J1885; J2270; J2272; J2405; J2550; J2765; J3360; J7050; Q9967

== ENCOUNTER 2023-07-17 13:24 | Emergency (ER) | payer OTHER, BC ==
[2023-07-17] MEDS ORDERED: Ketorolac Tromethamine 30 MG (1 mL) VIAL ONE (14:15)
[2023-07-17] MEDS ORDERED: Ondansetron PF 4 MG/2 ML Vial ONE (14:15)
[2023-07-17] MEDS ORDERED: HYDROmorphone 0.5 MG/0.5 ML SYRINGE ONE ×2 (14:15→15:55)
[2023-07-17] MEDS ORDERED: LORazepam 2 MG/ML SYR.(CARPUJECT) ONE (14:16)
[2023-07-17 14:34] LABS: #Basophils Less than 0.03 10x3/uL (0.0-0.2); %Basophils 0.2 % (0.0-1.0); %Eosinophils 0.6 % (0.0-10.0); %Lymphocytes 22.5 % (21.0-51.0); %Monocytes 3.9 % (0.0-10.0); %Neutrophils 72.6 % (42.0-75.0); Hematocrit 43.8 % (42.0-52.0); Hemoglobin 15.8 g/dL (14.0-18.0); Mean Corpuscular HGB CONC 36.1 g/dL (32.0-36.0); Mean Corpuscular Hemoglobin 33.4 pg (27.0-31.0); Mean Corpuscular Volume 92.6 fL (78.0-98.0); Mean Platelet Volume 9.9 fL (7.4-10.4); Platelet Count 262 10x3/uL (130-400); RBC Distribution Width 12.4 % (11.5-14.5); Red Blood Cell (RBC) Count 4.73 mill/uL (4.70-6.10)
[2023-07-17 14:55] LABS: ALT (SGPT) 25 U/L (8-55); AST (SGOT) 18 U/L (5-34); Albumin 4.9 g/dL (3.5-5.0); Alkaline Phosphatase 112 U/L (40-110); Anion Gap 17 mmol/L (10-20); BUN (Urea Nitrogen) 12 mg/dL (8.9-20.6); Bilirubin, Total 0.8 mg/dL (0.2-1.2); Calc. Creatinine Clearance 0 mL/min (70-130); Calcium 10.1 mg/dL (7.8-10.44); Carbon Dioxide 20 mmol/L (22-29); Chloride 108 mmol/L (98-107); Estimated GFR 87; Glucose 112 mg/dL (70-105); Lipase 21 U/L (8-78); Potassium 3.4 mmol/L (3.5-5.1); Protein, Total 7.9 g/dL (6.0-8.3); Sodium 142 mmol/L (136-145)
== END 2023-07-17 17:13 | disposition home or self-care (01) ==
LOC: ERS 13:24
DX: G89.3 Neoplasm related pain (acute) (chronic) (principal); R11.2 Nausea with vomiting, unspecified; C62.90 Malignant neoplasm of unspecified testis, unspecified whether descended or undescended; C78.00 Secondary malignant neoplasm of unspecified lung; Z79.899 Other long term (current) drug therapy
CPT/HCPCS: 80053; 83605; 83690; 85025; 96361; 96374; 96375; 96376; J1170; J1885; J2060; J2405

== ENCOUNTER 2023-08-31 16:28 | Emergency (ER) | payer BC, OTHER ==
[2023-08-31] MEDS ORDERED: Ondansetron PF 4 MG/2 ML Vial ONE (17:09)
[2023-08-31] MEDS ORDERED: Metoclopramide HCl 10 MG (2 mL) VIAL ONE (17:09)
[2023-08-31] MEDS ORDERED: diphenhydrAMINE 50 MG/ML VIAL ONE (17:09)
[2023-08-31] MEDS ORDERED: Haloperidol Lactate 5 MG/ML VIAL ONE (17:09)
[2023-08-31 17:53] LABS: #Basophils Less than 0.03 10x3/uL (0.0-0.2); %Basophils 0.3 % (0.0-1.0); %Eosinophils 0.5 % (0.0-10.0); %Lymphocytes 11.2 % (21.0-51.0); %Monocytes 4.3 % (0.0-10.0); %Neutrophils 83.4 % (42.0-75.0); Hematocrit 40.5 % (42.0-52.0); Hemoglobin 14.2 g/dL (14.0-18.0); Mean Corpuscular HGB CONC 35.1 g/dL (32.0-36.0); Mean Corpuscular Hemoglobin 33.3 pg (27.0-31.0); Mean Corpuscular Volume 94.8 fL (78.0-98.0); Mean Platelet Volume 9.8 fL (7.4-10.4); Platelet Count 193 10x3/uL (130-400); RBC Distribution Width 13.5 % (11.5-14.5); Red Blood Cell (RBC) Count 4.27 mill/uL (4.70-6.10)
[2023-08-31 18:05] LABS: Lipase 16 U/L (8-78)
[2023-08-31 18:07] LABS: Acetaminophen Less than 10 mcg/mL (10.0-30.0); Alcohol Less than 10.0 mg/dL (Less than 10); Salicylate Less than 8.0 mg/dL (15.0-30.0)
[2023-08-31 18:08] LABS: ALT (SGPT) 25 U/L (8-55); AST (SGOT) 19 U/L (5-34); Albumin 4.2 g/dL (3.5-5.0); Alkaline Phosphatase 105 U/L (40-110); Anion Gap 13 mmol/L (10-20); BUN (Urea Nitrogen) 13 mg/dL (8.9-20.6); Bilirubin, Total 0.6 mg/dL (0.2-1.2); Calc. Creatinine Clearance 0 mL/min (70-130); Calcium 9.2 mg/dL (7.8-10.44); Carbon Dioxide 21 mmol/L (22-29); Chloride 109 mmol/L (98-107); Estimated GFR 123; Globulin 2.3 g/dL (2.4-3.5); Glucose 99 mg/dL (70-105); Potassium 4.1 mmol/L (3.5-5.1); Protein, Total 6.5 g/dL (6.0-8.3); Sodium 139 mmol/L (136-145)
== END 2023-08-31 19:29 | disposition home or self-care (01) ==
LOC: ERS 16:28
DX: R11.11 Vomiting without nausea (principal); F12.188 Cannabis abuse with other cannabis-induced disorder
CPT/HCPCS: 36415; 71045; 80053; 80307; 83690; 85025; 96374; 96375; J1200; J1630; J2405; J2765

== ENCOUNTER 2023-09-09 16:17 | Emergency (ER) | payer BC, OTHER ==
[2023-09-09] MEDS ORDERED: diphenhydrAMINE 50 MG/ML VIAL ONE (17:24)
[2023-09-09] MEDS ORDERED: Haloperidol Lactate 5 MG/ML VIAL ONE (17:25)
[2023-09-09] MEDS ORDERED: Ketorolac Tromethamine 30 MG (1 mL) VIAL ONE (17:25)
[2023-09-09 17:35] LABS: #Basophils 0.03 10x3/uL (0.0-0.2); %Basophils 0.3 % (0.0-1.0); %Eosinophils 0.5 % (0.0-10.0); %Lymphocytes 14.7 % (21.0-51.0); %Monocytes 4.6 % (0.0-10.0); %Neutrophils 79.6 % (42.0-75.0); Hematocrit 44.2 % (42.0-52.0); Hemoglobin 15.8 g/dL (14.0-18.0); Mean Corpuscular HGB CONC 35.7 g/dL (32.0-36.0); Mean Corpuscular Hemoglobin 32.4 pg (27.0-31.0); Mean Corpuscular Volume 90.6 fL (78.0-98.0); Mean Platelet Volume 10.4 fL (7.4-10.4); Platelet Count 223 10x3/uL (130-400); RBC Distribution Width 12.9 % (11.5-14.5); Red Blood Cell (RBC) Count 4.88 mill/uL (4.70-6.10)
[2023-09-09 17:48] LABS: ALT (SGPT) 28 U/L (8-55); AST (SGOT) 37 U/L (5-34); Albumin 4.9 g/dL (3.5-5.0); Alkaline Phosphatase 101 U/L (40-110); Anion Gap 18 mmol/L (10-20); BUN (Urea Nitrogen) 11 mg/dL (8.9-20.6); Bilirubin, Total 1.3 mg/dL (0.2-1.2); Calc. Creatinine Clearance 0 mL/min (70-130); Calcium 9.8 mg/dL (7.8-10.44); Carbon Dioxide 20 mmol/L (22-29); Chloride 107 mmol/L (98-107); Estimated GFR 106; Globulin 2.7 g/dL (2.4-3.5); Glucose 116 mg/dL (70-105); Lipase 16 U/L (8-78); Magnesium 2.1 mg/dL (1.6-2.6); Potassium 3.5 mmol/L (3.5-5.1); Protein, Total 7.6 g/dL (6.0-8.3); Sodium 141 mmol/L (136-145)
[2023-09-09] MEDS ORDERED: Morphine 4 MG/ML VIAL ONE ×2 (18:34→20:52)
[2023-09-09 19:32] LABS: Bacteria/HPF None Seen HPF (None Seen); Bilirubin Negative (Negative); Blood, Urine Negative (Negative); CAUTI Indications for Culture Dysuria,urgency,freq; Clarity Clear (Clear); Glucose, Urine (Dipstick) Normal (Negative); Ketone, Urine Negative (Negative); Leukocyte Negative Leu/uL (Negative); Nitrite Negative (Negative); Protein, Urine (Dipstick) Negative (Neg-Trace); RBC/HPF None Seen HPF (0-3); Specific Gravity, Urine 1.011 (1.002-1.036); Squamous Epithelial 0-3 HPF (0-3); Urobilinogen Normal mg/dL (Less than 2); WBC/HPF 0-3 HPF (0-3)
[2023-09-09 20:00] LABS: Urine Culture Reflex No No
== END 2023-09-09 21:38 | disposition home or self-care (01) ==
LOC: ERS 16:17
DX: R10.9 Unspecified abdominal pain (principal); R11.2 Nausea with vomiting, unspecified
CPT/HCPCS: 80053; 81001; 83690; 83735; 85025; 93005; 96361; 96374; 96375; 96376; J1200; J1630; J1885; J2270

== ENCOUNTER 2023-10-17 21:24 | Emergency (ER) | payer BC, OTHER ==
[2023-10-17] MEDS ORDERED: Ondansetron PF 4 MG/2 ML Vial ONE (21:50)
[2023-10-17] MEDS ORDERED: Haloperidol Lactate 5 MG/ML VIAL ONE (21:50)
[2023-10-17] MEDS ORDERED: Metoclopramide HCl 10 MG (2 mL) VIAL ONE (21:50)
[2023-10-17] MEDS ORDERED: diphenhydrAMINE 50 MG/ML VIAL ONE (21:50)
[2023-10-17] MEDS ORDERED: Pantoprazole 40 MG VIAL ONE (21:50)
[2023-10-17 22:14] LABS: #Basophils Less than 0.03 10x3/uL (0.0-0.2); #Eosinphils Less than 0.03 10x3/uL (0.0-0.7); %Basophils 0.1 % (0.0-1.0); %Lymphocytes 12.4 % (21.0-51.0); %Monocytes 4.9 % (0.0-10.0); %Neutrophils 82.3 % (42.0-75.0); Hematocrit 44.7 % (42.0-52.0); Mean Corpuscular HGB CONC 35.8 g/dL (32.0-36.0); Mean Corpuscular Volume 92.2 fL (78.0-98.0); Platelet Count 274 10x3/uL (130-400); RBC Distribution Width 12.7 % (11.5-14.5); Red Blood Cell (RBC) Count 4.85 mill/uL (4.70-6.10)
[2023-10-17 22:38] LABS: Acetaminophen Less than 10 mcg/mL (Less than 10); Alcohol Less than 10.0 mg/dL (Less than 10); Salicylate Less than 8.0 mg/dL (Less than 8.0)
[2023-10-17 22:39] LABS: ALT (SGPT) 21 U/L (8-55); AST (SGOT) 18 U/L (5-34); Albumin 5.3 g/dL (3.5-5.0); Alkaline Phosphatase 126 U/L (40-110); Anion Gap 24 mmol/L (10-20); BUN (Urea Nitrogen) 16 mg/dL (8.9-20.6); Bilirubin, Total 1.5 mg/dL (0.2-1.2); CK (CPK) 143 U/L (30-200); Calc. Creatinine Clearance 0 mL/min (70-130); Calcium 10.4 mg/dL (7.8-10.44); Carbon Dioxide 19 mmol/L (22-29); Chloride 104 mmol/L (98-107); Estimated GFR 89; Globulin 3.2 g/dL (2.4-3.5); Glucose 128 mg/dL (70-105); Lipase 9 U/L (8-78); Potassium 3.2 mmol/L (3.5-5.1); Protein, Total 8.5 g/dL (6.0-8.3); Sodium 144 mmol/L (136-145)
[2023-10-17] MEDS ORDERED: Ketorolac Tromethamine 30 MG (1 mL) VIAL ONE (23:24)
== END 2023-10-18 00:30 | disposition home or self-care (01) ==
LOC: ERS 21:24
DX: E86.0 Dehydration (principal); R11.2 Nausea with vomiting, unspecified
CPT/HCPCS: 36415; 80053; 80307; 82550; 83690; 85025; 96361; 96374; 96375; J1200; J1630; J1885; J2405; J2470; J2765

== ENCOUNTER 2024-02-24 07:36 | Emergency (ER) | payer MEDICAID, OTHER ==
[2024-02-24] MEDS ORDERED: Morphine 4 MG/ML VIAL ONE (07:52)
[2024-02-24] MEDS ORDERED: Metoclopramide HCl 10 MG (2 mL) VIAL ONE (07:53)
[2024-02-24] MEDS ORDERED: Ondansetron PF 4 MG/2 ML Vial ONE (07:53)
[2024-02-24 08:06] LABS: #Basophils Less than 0.03 10x3/uL (0.0-0.2); #Eosinophils Less than 0.03 10x3/uL (0.0-0.7); %Basophils 0.2 % (0.0-1.0); %Lymphocytes 14.7 % (21.0-51.0); %Neutrophils 79.8 % (42.0-75.0); Hematocrit 42.7 % (42.0-52.0); Hemoglobin 15.8 g/dL (14.0-18.0); Mean Corpuscular Hemoglobin 33.1 pg (27.0-31.0); Mean Corpuscular Volume 89.3 fL (78.0-98.0); Platelet Count 266 10x3/uL (130-400); Red Blood Cell (RBC) Count 4.78 mill/uL (4.70-6.10)
[2024-02-24 08:19] LABS: Acetaminophen Less than 10 mcg/mL (Less than 10); Alcohol Less than 10.0 mg/dL (Less than 10); Salicylate Less than 8.0 mg/dL (Less than 8.0)
[2024-02-24 08:20] LABS: ALT (SGPT) 23 U/L (8-55); AST (SGOT) 20 U/L (5-34); Albumin 4.9 g/dL (3.5-5.0); Alkaline Phosphatase 103 U/L (40-110); Anion Gap 21 mmol/L (10-20); BUN (Urea Nitrogen) 15 mg/dL (8.9-20.6); Bilirubin, Total 0.9 mg/dL (0.2-1.2); CK (CPK) 142 U/L (30-200); Calc. Creatinine Clearance 0 mL/min (70-130); Calcium 9.4 mg/dL (7.8-10.44); Carbon Dioxide 16 mmol/L (22-29); Chloride 107 mmol/L (98-107); Estimated GFR 99; Globulin 3.6 g/dL (2.4-3.5); Glucose 129 mg/dL (70-105); Lipase 12 U/L (8-78); Potassium 3.7 mmol/L (3.5-5.1); Protein, Total 8.5 g/dL (6.0-8.3); Sodium 140 mmol/L (136-145)
[2024-02-24] MEDS ORDERED: Haloperidol Lactate 5 MG/ML VIAL ONE (08:30)
[2024-02-24] MEDS ORDERED: diphenhydrAMINE 50 MG/ML VIAL ONE (08:30)
== END 2024-02-24 10:12 | disposition home or self-care (01) ==
LOC: ERS 07:36
DX: E86.0 Dehydration (principal); R11.2 Nausea with vomiting, unspecified
CPT/HCPCS: 80053; 80307; 82550; 83690; 85025; 96361; 96374; 96375; J1200; J1630; J2272; J2405; J2765

== ENCOUNTER 2024-09-29 01:09 | Emergency (ER) | payer MEDICAID, OTHER ==
[2024-09-29] MEDS ORDERED: Ondansetron PF 4 MG/2 ML Vial ONE ×2 (01:39→04:12)
[2024-09-29 01:41] LABS: #Basophils 0.04 10x3/uL (0.0-0.2); #Eosinophils Less than 0.03 10x3/uL (0.0-0.7); #Monocytes 0.46 10x3/uL (0.11-0.59); #Neutrophils 11.15 10x3/uL (1.40-6.50); %Basophils 0.3 % (0.0-1.0); %Eosinophils 0.1 % (0.0-10.0); %Lymphocytes 10.8 % (21.0-51.0); %Monocytes 3.5 % (0.0-10.0); %Neutrophils 85.1 % (42.0-75.0); Hematocrit 44.0 % (42.0-52.0); Hemoglobin 15.7 g/dL (14.0-18.0); Mean Corpuscular Hemoglobin 32.2 pg (27.0-31.0); Mean Corpuscular Volume 90.3 fL (78.0-98.0); Platelet Count 232 10x3/uL (130-400); Red Blood Cell (RBC) Count 4.87 mill/uL (4.70-6.10); White Blood Cell (WBC) Count 13.11 10x3/uL (4.8-10.8)
[2024-09-29 02:00] LABS: ALT (SGPT) 18 U/L (Less than 45); AST (SGOT) 22 U/L (11-34); Albumin 4.9 g/dL (3.1-4.5); Alkaline Phosphatase 119 U/L (40-110); Anion Gap 19 mmol/L (10-20); BUN (Urea Nitrogen) 25 mg/dL (8.9-20.6); Bilirubin, Total 0.9 mg/dL (0.3-1.2); Calc. Creatinine Clearance 0 mL/min (70-130); Calcium 8.9 mg/dL (7.8-10.44); Carbon Dioxide 18 mmol/L (22-29); Chloride 106 mmol/L (98-107); Globulin 3.0 g/dL (2.4-3.5); Glucose 111 mg/dL (70-105); Lipase 15 U/L (8-78); Potassium 3.6 mmol/L (3.5-5.1); Sodium 139 mmol/L (136-145)
[2024-09-29] MEDS ORDERED: cefTRIAXone (ROCEPHIN) 1 GM VIAL ONE (02:54)
[2024-09-29 03:03] LABS: Bacteria/HPF None Seen HPF (None Seen); CAUTI Indications for Culture Pelvic or flank pain; Glucose, Urine (Dipstick) Normal (Negative); Leukocyte Negative Leu/uL (Negative); Protein, Urine (Dipstick) 50 mg/dL (Neg-Trace); RBC/HPF 0-3 HPF (0-3); Specific Gravity, Urine 1.030 (1.002-1.036); WBC/HPF 0-3 HPF (0-3)
[2024-09-29 03:05] LABS: Urine Culture Reflex No No
== END 2024-09-29 04:18 | disposition home or self-care (01) ==
LOC: ERS 01:09
DX: K52.9 Noninfective gastroenteritis and colitis, unspecified (principal)
CPT/HCPCS: 36415; 71045; 74177; 80053; 81001; 83605; 83690; 85025; 87040; 87086; 96361; 96365; 96375; 96376; J0696; J2270; J2405

== ENCOUNTER 2024-11-10 17:30 | Emergency (ER) | payer MEDICAID ==
[2024-11-10] MEDS ORDERED: Ondansetron PF 4 MG/2 ML Vial ONE (17:38)
[2024-11-10 17:55] LABS: #Basophils 0.03 10x3/uL (0.0-0.2); #Eosinophils 0.08 10x3/uL (0.0-0.7); #Monocytes 0.58 10x3/uL (0.11-0.59); #Neutrophils 3.93 10x3/uL (1.40-6.50); %Basophils 0.4 % (0.0-1.0); %Eosinophils 1.1 % (0.0-10.0); %Lymphocytes 35.6 % (21.0-51.0); %Monocytes 8.0 % (0.0-10.0); %Neutrophils 54.6 % (42.0-75.0); Hematocrit 45.7 % (42.0-52.0); Hemoglobin 15.5 g/dL (14.0-18.0); Mean Corpuscular Hemoglobin 31.7 pg (27.0-31.0); Mean Corpuscular Volume 93.5 fL (78.0-98.0); Platelet Count 242 10x3/uL (130-400); Red Blood Cell (RBC) Count 4.89 mill/uL (4.70-6.10); White Blood Cell (WBC) Count 7.21 10x3/uL (4.8-10.8)
[2024-11-10 18:25] LABS: ALT (SGPT) 24 U/L (Less than 45); AST (SGOT) 32 U/L (11-34); Albumin 4.6 g/dL (3.1-4.5); Alkaline Phosphatase 108 U/L (40-110); Anion Gap 17 mmol/L (10-20); BUN (Urea Nitrogen) 14 mg/dL (8.9-20.6); Bilirubin, Total 0.6 mg/dL (0.3-1.2); Calc. Creatinine Clearance 0 mL/min (70-130); Calcium 9.4 mg/dL (7.8-10.44); Carbon Dioxide 18 mmol/L (22-29); Chloride 108 mmol/L (98-107); Globulin 3.1 g/dL (2.4-3.5); Glucose 110 mg/dL (70-105); Potassium 3.9 mmol/L (3.5-5.1); Sodium 139 mmol/L (136-145)
[2024-11-10] MEDS ORDERED: Orphenadrine Citrate 60 MG/2 ML VIAL ONE (18:27)
[2024-11-10] MEDS ORDERED: Ketorolac Tromethamine 30 MG (1 mL) VIAL ONE (18:27)
[2024-11-10 18:44] LABS: Lipase 32 U/L (8-78); Magnesium 1.9 mg/dL (1.6-2.6)
[2024-11-10] MEDS ORDERED: HYDROmorphone 0.5 MG/0.5 ML SYRINGE ONE (20:00)
[2024-11-10] MEDS ORDERED: Prochlorperazine 10 MG/2 ML VIAL ONE (20:01)
[2024-11-10 21:57] LABS: Bacteria/HPF None Seen HPF (None Seen); CAUTI Indications for Culture Acute Hematuria; Glucose, Urine (Dipstick) Normal (Negative); Leukocyte Negative Leu/uL (Negative); Protein, Urine (Dipstick) 10 mg/dL (Neg-Trace); RBC/HPF 0-3 HPF (0-3); WBC/HPF 0-3 HPF (0-3)
[2024-11-10 21:58] LABS: Specific Gravity, Urine Greater than 1.050 (1.002-1.036)
[2024-11-10 21:59] LABS: Urine Culture Reflex No No
== END 2024-11-10 21:54 | disposition home or self-care (01) ==
LOC: ERS 17:30
DX: K52.9 Noninfective gastroenteritis and colitis, unspecified (principal); E86.0 Dehydration; Z79.899 Other long term (current) drug therapy
CPT/HCPCS: 71275; 74177; 80053; 81001; 83690; 83735; 85025; 96361; 96374; 96375; J0780; J1171; J1885; J2360; J2919; Q9967